=== PATIENT | male | born 1955 | race American Indian/Alaskan Native ===

== ENCOUNTER 2018-12-20 10:42 | Day surgery (SDC) | payer MEDICARE, OTHER ==
[~2018-12-20 10:42] MED LIST: LIDOCAINE MPF (2%) 20 MG/1 ML VIAL 5 ML ONE
--- NOTE | 2018-12-20 11:55 | Anesthesia Day of Surgery ---
Anesthesia Day of Surgery - Day of Surgery Patient Examined: Yes Patient H&P Reviewed: Yes Patient is NPO: Yes
--- NOTE | 2018-12-20 11:57 | Anesthesia Consultation ---
Anesthesia Consult and Med Hx Date of service: 12/20/18 - Airway Anesthetic Teeth Evaluation: Good ROM Head & Neck: Adequate (S/P ACDF; Goor ROM) Mental/Hyoid Distance: Adequate Mallampati Class: Class II Intubation Access Assessment: Good - Pre-Operative Health Status ASA Pre-Surgery Classification: ASA2 Proposed Anesthetic Plan: MAC - Pulmonary Hx Smoking: Yes Hx Asthma: No COPD: No Hx Pneumonia: No - Central Nervous System Hx Back Pain: Yes (chronic pain syndrome) - Endocrine Hx End Stage Renal Disease: No Hx Non-Insulin Dependent Diabetes: Yes (PREdiabetes) - Other Systems Hx Cancer: Yes (Prostate Ca)
[2018-12-20] MEDS ORDERED: SODIUM CHLORIDE 0.9% 1000 ML 1,000 ML IV SCH (12:00)
[2018-12-20] MEDS ORDERED: PROPOFOL 200 MG/20 ML VIAL IV ONE ×2 (12:49)
[2018-12-20] MEDS ORDERED: MIDAZOLAM 2 MG/2 ML INJ ONE (12:55)
[2018-12-20] MEDS ORDERED: LIDOCAINE MPF (2%) 20 MG/1 ML VIAL 5 ML ONE (13:30)
--- NOTE | 2018-12-20 13:40 | Operative Report ---
PROCEDURE: Esophagogastroduodenoscopy with biopsy. INDICATIONS: This is a 63-year-old -German gentleman with an underlying history of diabetes mellitus who has a strong family history of cancer and has had prostate cancer as well. EGD was done because of GERD symptoms PROCEDURE: Procedure was done after getting informed consent with MAC anesthesia. Instrument was passed through the hypopharynx into the esophagus, which showed moderate erosive esophagitis. Photo documentation and biopsy was done from the distal esophagus. Stomach showed antral erosion and gastritis. Biopsy was done from the gastric antrum and the gastric body to rule out for H. pylori and atrophic gastritis. The pylorus was patent. The duodenum in the first and second portion appeared normal. There was minimal bleeding from the biopsy sites and no complications associated with the procedure. ASSESSMENT: Gastroesophageal reflux disease symptoms, moderate erosive esophagitis, gastric erosion, gastritis. PLAN: Treat the patient with PPI, have the patient avoid aspirin and aspirin-related products for the next 4-5 days. Otherwise, resume home medication and to do a colonoscopy as part of colon polyp screening and have the patient follow up in the office in 1-2 weeks' time. Procedure was done in the GI lab with assistance of the GI lab team, which included RN, Any Colon, Anuj mckenzie and the assistance of Anesthesia. JOB# [id number] NADIR/YINKA
--- NOTE | 2018-12-20 13:41 | Procedure Note ---
Date of procedure: 12/20/18 Pre-op diagnosis: GERD/Colon Polyp Screening Post-op diagnosis: other (Moderate,Erosive Esophagitis/Gastric Erosion/Gastritis/Solitary,small Rectal Polyp/ Minor,Internal Hemorrhoid/ No Diverticular disease noted) Procedure: EGD with Biopsy and Colonoscopy with Biopsy Anesthesia: [facility] [place] Surgeon: DAVIDE MAJANO Estimated blood loss: minimal Pathology: list Specimen disposition: to lab Condition: stable Disposition: same day (Treat with PPI. Avoid aspirin and NSAID for 5 days; otherwise resume home medication and follow up in 1 to 2 weeks ([phone]).)
--- NOTE | 2018-12-20 13:43 | Operative Report ---
PROCEDURE: Colonoscopy. INDICATIONS: This is a 63-year-old -[place] gentleman with an underlying history of diabetes mellitus, strong family history of cancer, prior history of prostate cancer and prior history of colon polyp. PROCEDURE: Procedure was done after getting informed consent with MAC anesthesia. EGD was done prior to the colonoscopy. Initial rectal exam was unremarkable. Instrument was passed through the rectum onto the cecum, which was identified with ileocecal valve and the appendiceal orifice. Visualization was fair to good. Cecum, ascending colon, transverse colon, descending colon and sigmoid showed normal mucosa. There was a solitary polyp noted in the rectum that was removed by cold biopsy and the rectum showed some minor internal hemorrhoid on the retroverted view. ASSESSMENT: Colonoscopy with biopsy, colon polyp screening, solitary rectal polyp noted, removed by cold biopsy. No diverticular disease, minor internal hemorrhoid on the retroverted view. PLAN: To have the patient avoid aspirin and aspirin-related products for the next 4-5 days. Follow up in the office in 1-2 weeks' time. Encourage the patient to take PPI and to avoid aspirin and aspirin-related products as stated above. The procedure was done in the GI Lab with assistance of the GI Lab team, which included RN, Any Colon, including Anuj hollingsworth and assistance of Anesthesia. JOB# [id number] NADIR/YINKA
[2018-12-20 13:57] VITALS: BP 154/87
--- NOTE | 2018-12-20 17:24 | Post Anesthesia Evaluation ---
- Post Anesthesia Evaluation Patient Participated: Yes Airway Patent: Yes Stable Respiratory Function: Yes Nausea/Vomiting: No Temp > 96.8F: Yes Pain Manageable: Yes Adequeate Hydration: Yes Anesthesia Complications: No
== END 2018-12-20 10:43 | disposition home or self-care (01) ==
LOC: GIO 10:42
DX: Z12.11 Encounter for screening for malignant neoplasm of colon (principal); K62.1 Rectal polyp; K64.8 Other hemorrhoids; K21.0 Gastro-esophageal reflux disease with esophagitis; K29.70 Gastritis, unspecified, without bleeding; E11.9 Type 2 diabetes mellitus without complications; M19.90 Unspecified osteoarthritis, unspecified site; Z80.42 Family history of malignant neoplasm of prostate; Z88.2 Allergy status to sulfonamides; Z79.899 Other long term (current) drug therapy; Z98.890 Other specified postprocedural states
CPT/HCPCS: 43239; 45380; 82962; 88305; 88342; J2250; J2704